=== PATIENT | male | born 1970 | race Caucasian/White ===

== ENCOUNTER 2017-01-11 20:41 | Emergency (ER) | payer MEDICAID ==
[~2017-01-11] VITALS: Ht 162.6 cm; Wt 72.5 kg
[~2017-01-11 20:41] MED LIST: OXYC15TA PO; PROP10TA6 PO
[2017-01-11 20:43] VITALS: BP 148/81; PULSE 73; RESP 16; TEMP 98.6; O2SAT 97
--- NOTE | 2017-01-11 21:46 | PD ---
Physical Exam Date Seen by Provider: Jan 11, 2017 Time Seen by Provider: 21:45 Narrative 46 yo male here for tooth infection. Going on for a few days. No other medical issues. Nothing makes it better. Vitals stable in triage. Awaiting bed placement Data Data Last Documented VS Vital Signs Date Time Temp Pulse Resp B/P (MAP) Pulse Ox O2 Delivery O2 Flow Rate FiO2 01/11/17 20:43 98.6 73 16 148/81 (103) 97 Room Air [facility] Medical Record Reviewed: Yes Supervised Visit with YOLI: Sachin Mcarthur Jan 11, 2017 21:46
[2017-01-11] MEDS ORDERED: MAGICADU2 SWISH-SPIT (23:12)
[2017-01-11] MEDS ORDERED: CLIN1CAP6 PO (23:12)
[2017-01-11] MEDS ORDERED: PERI0.126 SWISH-SPIT (23:12)
[2017-01-11] MEDS ORDERED: KETOROLAC TROMETHAMINE 60 MG/2 ML (IM) VIAL IM ONE (23:15)
[2017-01-11] MEDS ORDERED: CLINDAMYCIN PHOS 600 MG/4 ML VIAL IM ONE (23:15)
--- NOTE | 2017-01-11 23:16 | PD ---
HPI Chief Complaint: Oral / Dental Pain or Problem Time Seen by Provider: 23:05 Travel History International Travel<30 days: No Contact w/Intl Traveler<30days: No Traveled to known affect area: No History of Present Illness HPI This is a 46-year-old male presents for evaluation of dental pain. Symptoms started 5 days ago. The pain is a throbbing pain, constant, localized to the right mandibular molars and premolars. Pain is worse when chewing. He used some leftover amoxicillin which did not seem to help and this is what prompted evaluation. Denies any dental trauma, fevers, chills. Endorses tobacco use. No other complaints. PFSH Past Medical History Anxiety: Yes Heart Rhythm Problems: Yes ("RAPID HEART RATE") Diminished Hearing: No Immunizations Current: No Tetanus Vaccination: > 5 Years Influenza Vaccination: No Past Surgical History Appendectomy: Yes Tonsillectomy: Yes Social History Alcohol Use: Yes (sometimes) Tobacco Use: Yes Substance Use: No Allergies-Medications (Allergen,Severity, Reaction): Coded Allergies: citalopram (Unverified Allergy, Severe, 12/27/16) duloxetine (Unverified Allergy, Severe, 12/27/16) fluvoxamine (Unverified Allergy, Severe, 12/27/16) paroxetine (Unverified Allergy, Severe, 12/27/16) sertraline (Unverified Allergy, Severe, 12/27/16) venlafaxine (Unverified Allergy, Severe, 12/27/16) Reported Meds & Prescriptions Reported Meds & Active Scripts Active Peridex Liq (Chlorhexidine Gluconate (Mouth) Liq) 0.12% Soln 15 Ml SWISH-SPIT BID Magic Mouthwash Adult Liq (Multi-Ingredient Mouthwash/Gargle) 120 Ml Susp 10 Ml SWISH-SPIT ACHS Each 5mL contains: Nystatin 200,000units, Diphenhydramine 4.25mg, Viscous Lidocaine 10mg, Ruggiero syrup 0.8 mL Clindamycin (Clindamycin HCl) 300 Mg Cap 300 Mg PO TID 10 Days Reported Propranolol (Propranolol HCl) 10 Mg Tab 10 Mg PO BID Oxycodone (Oxycodone HCl) 15 Mg Tab 15 Mg PO Q6H PRN Review of Systems Except as stated in HPI: all other systems reviewed are Neg Physical Exam Narrative GENERAL: Well-developed well-nourished male in no acute distress SKIN: Warm and dry. HEAD: Atraumatic. Normocephalic. EYES: Pupils equal and round. No scleral icterus. No injection or drainage. ENT: No nasal bleeding or discharge. Mucous membranes pink and moist. Upper dentures in place. Most of the mandibular teeth are very decayed. There is tenderness to palpation to the right mandibular gingiva. No trismus, no sublingual edema. NECK: Trachea midline. No JVD. No lymphadenopathy, no submandibular edema. CARDIOVASCULAR: Regular rate and rhythm. No murmur appreciated. RESPIRATORY: No accessory muscle use. Clear to auscultation. Breath sounds equal bilaterally. Data Data Last Documented VS Vital Signs Date Time Temp Pulse Resp B/P (MAP) Pulse Ox O2 Delivery O2 Flow Rate FiO2 01/11/17 20:43 98.6 73 16 148/81 (103) 97 Room Air Orders Orders Clindamycin Inj (Cleocin Inj) (01/11/17 23:15) Ketorolac Inj (Toradol Inj) (01/11/17 23:15) MDM Medical Decision Making Medical Screen Exam Complete: Yes Emergency Medical Condition: Yes Medical Record Reviewed: Yes Differential Diagnosis Dental caries, pulpitis, pericoronitis, periodontal abscess Narrative Course 46-year-old male here with 5 days of dental pain. Examination reveals severe dental decay in the mandibular teeth, previous dentures placed in the upper teeth. The patient has plans to eventually get dentures in the lower teeth. At this point in time the plan is to treat him with a short course of clindamycin and he will follow up with a dentist for definitive therapy. He is stable for discharge. Diagnosis Primary Impression: Dental caries Referrals: Dentist Additional Instructions: Medication as prescribed. [id number] Tylenol or Motrin for pain. Follow- up with dentist for definitive therapy. Return for any emergent medical conditions. Med/Other Pt SpecificInfo: Prescription(s) given Scripts Chlorhexidine Gluconate (Mouth) Liq (Peridex Liq) 0.12% Soln 15 ML SWISH-SPIT BID, #473 ML 0 Refills Prov: Tonya Hernandez DO 01/11/17 Ispmhmap-Llrbwglepxtzzxg-Cbcbtjtvz Liq (Magic Mouthwash Adult Liq) 120 Ml Susp 10 ML SWISH-SPIT ACHS for Mouth sores, #120 ML 1 Refill Each 5mL contains: Nystatin 200,000units, Diphenhydramine 4.25mg, Viscous Lidocaine 10mg, Ruggiero syrup 0.8 mL Prov: Tonya Hernandez DO 01/11/17 Clindamycin (Clindamycin) 300 Mg Cap 300 MG PO TID for Infection for 10 Days, CAP 0 Refills Prov: Tonya Hernandez DO 01/11/17 Disposition: 01 DISCHARGE HOME Condition: Stable Gunnar Duarte Jan 11, 2017 23:16
== END 2017-01-11 23:51 | disposition home or self-care (01) ==
LOC: NEPK 20:41
DX: K02.9 Dental caries, unspecified (principal); F41.9 Anxiety disorder, unspecified; Z72.0 Tobacco use
CPT/HCPCS: 96372; 99284; J1885